=== PATIENT | female | born 2000 | race Two or more races ===

== ENCOUNTER 2021-01-25 06:35 | Emergency (ER) | payer MEDICAID, OTHER ==
[~2021-01-25] VITALS: Ht 152.4 cm; Wt 49.9 kg
[2021-01-25] MEDS ORDERED: LORAZEPAM 1 MG TABLET ONE (06:47)
--- NOTE | 2021-01-25 06:47 | NUR ---
BIBRA 878 C/O "WANTS TO TALK TO SOMEONE" -DENIES SI AND HI. PT ALERT AND ORIENTED X3. AMBULATORY WITH NON LABORED BREATHING.
[2021-01-25] MEDS ORDERED: LORAZEPAM 1 MG TABLET PO ONE (07:00)
[2021-01-25 07:59] LABS: BILIRUBIN,URINE SMALL (NEGATIVE); COLOR,URINE YELLOW (YELLOW); LEUKOCYTE ESTERASE ,URINE NEGATIVE (NEGATIVE); NITRITE, URINE NEGATIVE (NEGATIVE); PROTEIN,URINE NEGATIVE (NEGATIVE); UGLUCOSE NEGATIVE (NEGATIVE)
[2021-01-25 08:00] LABS: ALBUMIN 3.6 g/dL (3.4-5.0); ALKALINE PHOSPHATASE 50 U/L (46-116); ASPARTATE AMINOTRANSFERASE 119 U/L (15-37); BILIRUBIN,TOTAL 0.7 mg/dL (0.2-1.0); CALCIUM, SERUM 8.2 mg/dL (8.5-10.1); CARBON DIOXIDE 17 mmol/L (21-32); CREATININE 0.6 mg/dL (0.6-1.3); GLUCOSE 57 mg/dL (74-106); TOTAL PROTEIN, SERUM 6.4 g/dL (6.4-8.2); UREA NITROGEN, BLOOD 15 mg/dL (7-18)
[2021-01-25 09:45] LABS: BASOPHILS % (AUTO) 0.4 % (0.0-2.0); EOSINOPHILS % (AUTO) 0.3 % (0.0-6.0); HEMATOCRIT 34 % (33-45); HEMOGLOBIN 10.8 g/dL (11.5-14.8); LYMPHOCYTES # (AUTO) 2.5 K/uL (0.8-4.8); LYMPHOCYTES % (AUTO) 31.7 % (20.0-44.0); MEAN CORPUSCULAR HGB CONC 32 g/dl (31.0-36.0); MEAN CORPUSCULAR VOLUME 95 fL (82-100); MONOCYTES # (AUTO) 1.2 K/uL (0.1-1.30); MONOCYTES % (AUTO) 15.6 % (2.0-12.0); NEUTROPHILS # (AUTO) 4.1 K/uL (1.8-8.9); PLATELET COUNT (AUTO) 192 K/uL (150-450); RED BLOOD CELL COUNT(AUTO) 3.52 MIL/uL (4.0-5.2); WHITE BLOOD COUNT (AUTO) 7.9 K/uL (4.3-11.0)
[2021-01-25 09:58] LABS: BACTERIA,URINE Few /HPF (None Seen); SQUAMOUS EPITHELIAL CELL,UR Few /HPF (None Seen); WBC,URINE 0-2 /HPF (0-3)
[2021-01-25 10:47] LABS: BAND % (MANUAL) 1 % (0.0-5.0); LYMPHOCYTES % (MANUAL) 32 % (16-48); MONOCYTES % (MANUAL) 14 % (0-11.0); NEUTROPHILS % (MANUAL) 53 (42-76)
[2021-01-25 10:52] LABS: ALANINE AMINOTRANSFERASE 42 U/L (12-78); ALCOHOL, BLOOD < 3 mg/dL (0-0); BILIRUBIN,DIRECT 0.1 mg/dL (0.0-0.2); CHLORIDE 104 mmol/L (98-107); POTASSIUM 4.4 mmol/L (3.5-5.1); SODIUM SERUM 138 mmol/L (136-145)
[2021-01-25 11:07] LABS: ACETAMINOPHEN < 10 ug/ml (10-30)
--- NOTE | 2021-01-25 11:14 | NUR ---
director social service at bedside talking to patient.
--- NOTE | 2021-01-25 11:30 | NUR ---
SS Consult requested for possible psychosis. SW met with pt. nessa. However, pt. is very drowsy and not rousable to verbal cues or physical cues. SW informed sitter to call yadiel pt. is awake. Pt. received mAtivan earlier today.
--- NOTE | 2021-01-25 12:52 | NUR ---
PT MORE ALERT TALIA INFORMED.
--- NOTE | 2021-01-25 12:55 | NUR ---
SABINO met with pt. bedside. The pt. is a 20 year old female Pt. is A&O X 2 & makes piercing eye contact. The pt. apeears unkempt and is irritable and non compliant with interview. Pt. has pressured speech, flight of ideas. Pt. is not redirectable. Pt. is argumentative and became agitated when SW introduced self. Pt. stated that her siblings are being removed from the home by another SW. Pt. requested to be interviewed by a "male". SW offered to assist pt., with discharge plan and pt. refused to provide adress. Pt. is not able to plan for safety at this time as shehas poor insiight & poor judgement. Pt. was non-compliant with the rest of the interview. SABINO discussed with charge nurse, Wade who agreed that ED to call [facility] when pt. is more compliant. Pt. was given Ativan earlier today.
--- NOTE | 2021-01-25 18:55 | NUR ---
PT MORE ALERT CALLED KEENAN WILL BE ON HER WAY.
--- NOTE | 2021-01-25 22:02 | NUR ---
Patient discharged to home in stable condition. Written and verbal after care instructions given. Patient verbalizes understanding of instruction.Carlos is ambulatory with a steady gait accompanied by her mother.
[2021-01-25 22:04] VITALS: BP 108/80
== END 2021-01-25 22:05 | disposition home or self-care (01) ==
LOC: ER 06:36
DX: F30.9 Manic episode, unspecified (principal); Z20.822 Contact with and (suspected) exposure to COVID-19; Z87.81 Personal history of (healed) traumatic fracture
CPT/HCPCS: 36415; 80048; 80076; 80143; 80307; 80320; 81001; 84703; 85007; 85025; 87426; 99283; C9803; G0480